=== PATIENT | male | born 1955 | race Caucasian/White ===

== ENCOUNTER 2022-02-02 01:03 | Day surgery (SDC) | payer OTHER, SELFPAY ==
[2022-01-22 11:53] VITALS: BMI 27.4
[2022-02-02 07:49] VITALS: BP 143/85; PULSE 65; RESP 18; TEMP 35.9; O2SAT 98
[2022-02-02] MEDS: LACTATED RINGERS 1,000 ML 150 ML IV CONT (07:54)
--- NOTE | 2022-02-02 08:42 | WPDANESEPPF ---
Anes - Initial Pre Proc Eval Procedure: Operation Date: 02/02/22 09:00 Proposed Procedures p Screening Colonoscopy - Daniel Bailey MD Date/Time: 02/02/22 08:42 Surgeon: Daniel Bailey MD Pre Op Diagnosis: hx of colon ca, neoplasm screening Patient Data Age: 66 Gender: M Height: 1.73 m Weight: 82.7 kg Last Vital Signs Temp 96.6 F L 02/02/22 07:49 Pulse 65 02/02/22 07:49 Resp 18 02/02/22 07:49 BP 143/85 H 02/02/22 07:49 Pulse Ox 98 02/02/22 07:49 Allergies Allergy/AdvReac Type Severity Reaction Status Date / Time bee venom protein (honey bee) Allergy Severe Swelling Verified 02/02/22 07:49 Home Medications Medication Instructions Recorded Confirmed Type No Home Medications 12/11/20 02/02/22 History Patient hx anesthesia problems: none Family hx anesthesia problems: none Results Review: All pre-operative results and documents have been reviewed as part of the pre-operative evaluation. [facility] Family History Family History Mother Hypertension Father Carcinoma of colon Social History Social History (Updated 12/09/21 @ 13:04 by Paulette Anglin) Social History: Smoking status: Never smoker Second hand tobacco smoke exposure: No Alcohol intake: current Drinks per week: 14 Substance use: never Substance use type: does not use Living arrangements: with family Gender identity (if verbalized by the patient): Male Sexual Orientation (if Verbalized by the Patient): Straight or Heterosexual Anes - Eval Final PreProcedure Day of Procedure 02/02/22 08:42 Patient weight: normal Heart: regular rate and rhythm Lungs: clear to auscultation Airway: Mallampati scale class II Neurological: alert and oriented Last oral intake: >/= 8 hours ASA classification: II Emergent: no Anesthetic plan: proceed Anesthesia type and monitoring: general GIVS and standard monitoring Results Review: All pre-operative results and documents have been reviewed as part of the pre-operative evaluation. Informed Consent: The patient's anesthetic plan and its attendant risks and benefits were discussed with the patient/family/POA. Questions were solicited and answers provided to the satisfaction of the patient/family/POA.
--- NOTE | 2022-02-02 08:49 | PM.HPGS ---
History of Present Illness History of Present Illness Consent: Risks, benefits, and alternatives have been discussed and questions answered. Patient agrees to proceed with procedure. Chief complaint: hx of colon ca, neoplasm screening Narrative: Onofre Busby Jr. is a 66 year old male here for first colonoscopy, father had colon cancer Review of Systems Constitutional: Constitutional: Denies headache(s) and Denies weakness Eyes: Eyes: Denies blurry vision ENT: Reports Normal hearing present, Denies headache(s) and Denies neck pain Cardiovascular: Cardiovascular: Denies chest pain and Denies dyspnea Respiratory: Respiratory: Denies dyspnea Gastrointestinal: Gastrointestinal: Reports no additional gastrointestinal complaints Genitourinary: Genitourinary: Denies dysuria Musculoskeletal: Musculoskeletal: Denies neck pain Integumentary/Breasts: Skin/Breast: Denies dry skin Neurologic: Reports Normal hearing present, Denies headache(s) and Denies weakness Psychiatric: Psychiatric: Denies anxiety Endocrine: Endocrine: Denies change in body appearance Hematologic/Lymphatic: Hematologic/Lymphatic: Denies easy bleeding Allergic/Immunologic: Allergic/Immunologic: Denies urticaria PMFSH Past Medical History Medical History (Updated 02/02/22 @ 08:50 by Daniel Bailey MD) Family history of colon cancer in father Family History Family History Mother Hypertension Father Carcinoma of colon Social History Social History (Updated 12/09/21 @ 13:04 by Paulette Anglin) Social History: Smoking status: Never smoker Second hand tobacco smoke exposure: No Alcohol intake: current Drinks per week: 14 Substance use: never Substance use type: does not use Living arrangements: with family Gender identity (if verbalized by the patient): Male Sexual Orientation (if Verbalized by the Patient): Straight or Heterosexual Meds Home Medications and Allergies Home Medications Medication Instructions Recorded Confirmed Type No Home Medications 12/11/20 02/02/22 History Allergies Allergy/AdvReac Type Severity Reaction Status Date / Time bee venom protein (honey bee) Allergy Severe Swelling Verified 02/02/22 07:49 Vital Signs Vital Signs - 24 hr 02/02/22 07:49 Temperature 96.6 F L Pulse Rate 65 Respiratory Rate 18 Blood Pressure 143/85 H Pulse Oximetry 98 Exam Const: General: comfortable and no acute distress HENMT: General nose exam: Normal nares present Eyes: General: appearance normal, both eyes and all related structures Neck: Neck: no JVD Resp: Auscultation: clear to auscultation bilaterally Cardio: Rate: regular rate Rhythm: regular rhythm GI: Inspection: non-distended GI Palp: Yes Soft to palpation Skin: General skin exam: normal color Neuro: General: gait normal Speech: normal speech Extrem: General: normal to inspection Psych: Mental Status: mental status grossly normal Assessment and Plan Assessment and plan (1) Family history of colon cancer in father: Code(s): Z80.0 - Family history of malignant neoplasm of digestive organs Status: Acute Assessment and Plan: colonoscopy
[2022-02-02 09:09] VITALS: BP 110/73; PULSE 75; RESP 20; O2SAT 98
[2022-02-02 09:19] VITALS: BP 114/74; PULSE 66; RESP 19; O2SAT 99
[2022-02-02 09:29] VITALS: BP 126/81; PULSE 54; RESP 21; O2SAT 100
== END 2022-02-02 09:37 | disposition home or self-care (01) ==
PROVIDERS: PCP Family Medicine; Visit Provider Internal Medicine Gastroenterology
PROC: 0DJD8ZZ Inspection of Lower Intestinal Tract, Via Natural or Artificial Opening Endoscopic (ICD-10-PCS; CPT 45378; principal; 2022-02-02 09:00)
DX: Z12.11 Encounter for screening for malignant neoplasm of colon (principal); K63.5 Polyp of colon; K64.8 Other hemorrhoids; Z80.0 Family history of malignant neoplasm of digestive organs
CPT/HCPCS: 45385; 88305; J2704; J7120